=== PATIENT | male | born 1975 | race Caucasian/White ===

== ENCOUNTER 2024-10-01 09:28 | Day surgery (SDC) | payer OTHER ==
[2024-09-24 08:39] VITALS: BP 149/99
[2024-09-24 08:57] LABS: BASO % 1.2 % (0.1-1.2); EOS # 0.17 (0.04-0.54); EOS % 4.0 % (0.7-7.0); LYMPH # 1.07 (1.18-3.74); LYMPH % 25.1 % (19.3-53.1); MEAN PLATELET VOLUME 9.80 fl (9.4-12.4); MONO # 0.37 (0.24-0.82); MONO % 8.7 % (4.7-12.5); NEUT # 2.59 (1.56-6.13); NEUT % 60.5 % (34.0-71.1); RED CELL DISTRIBUTION WIDTH 12.0 % (11.6-14.4)
[2024-09-24 09:11] LABS: URINE APPEARANCE Clear; URINE BILIRRUBIN Negative (NEGATIVE); URINE BLOOD Negative; URINE COLOR Yellow; URINE GLUCOSE Negative (NEGATIVE); URINE KETONE Trace (NEGATIVE); URINE LEUKOCYTE Negative; URINE NITRATE Negative; URINE PROTEIN Negative (NEGATIVE); URINE UROBILINOGEN 0.2 E.U./dl
[2024-09-24 09:12] LABS: URINE BACTERIA 9.6 uL (0.0-1933); URINE WBC 4.5 uL (0.0-23.2)
[2024-09-24 09:15] LABS: INR < 0.93
[2024-09-24 09:28] LABS: URINE CAST 0.00 uL (0.0-1.40); URINE EPITHELIAL CELLS 1.2 uL (0.0-38.8); URINE RBC 1.1 uL (0.0-20.8)
[2024-09-24 09:42] LABS: ALT/SGPT 25.0 U/L (12-78); AST/SGOT 15.0 U/L (15-37); BILIRUBIN TOTAL 0.51 mg/dL (0.3-1.2); BUN CREA RATIO 22.0 (7.0-25.0); CREATININE SERUM 0.85 mg/dL (0.70-1.30); GFR 95.41; GLOBULINA 3.6 G/DL (2.4-3.5); GLUCOSE FASTING 75.0 mg/dL (65-100); OSMOLALITY SERUM 280.0 MOSM/KG (275-295)
[~2024-10-01] VITALS: Ht 180.3 cm; Wt 79.4 kg
[2024-10-01] MEDS ORDERED: MORPHINE SULFATE 4 MG/ML VIAL IV ONE (13:10)
[2024-10-01] MEDS ORDERED: KETOROLAC TROMETHAMINE 30 MG VIAL IM ONE (13:45)
[2024-10-01] MEDS ORDERED: ISOPROPYL ALCOHOL 30 ML OUNCE TOP ONE (13:45)
[2024-10-01] MEDS ORDERED: BUPIVACAINE HCL 30 ML VIAL IJ ONE (13:45)
[2024-10-01] MEDS ORDERED: CEFAZOLIN SODIUM 2,000 MG in 0.9 % SODIUM CHLORIDE 100 ML IV ONE (13:45)
[2024-10-01] MEDS ORDERED: KETOROLAC TROMETHAMINE 30 MG VIAL IV ONE (13:45)
[2024-10-01] MEDS ORDERED: LIDOCAINE HCL 1%/EPINEPHRINE 20ML VIAL IJ ONE (13:45)
== END 2024-10-01 16:05 | disposition home or self-care (01) ==
LOC: CIR.AMB 09:28
PROVIDERS: ATTEND Orthopaedic Surgery
DX: M19.021 Primary osteoarthritis, right elbow (principal)